=== PATIENT | female | born 1945 | race Hispanic/Latino ===

== ENCOUNTER 2018-04-02 09:41 | Emergency (ER) | payer OTHER | END 2018-04-02 10:48 | disposition home or self-care (01) | LOC: EDH 09:41 | DX: S93.492A Sprain of other ligament of left ankle, initial encounter (principal); I10 Essential (primary) hypertension; E07.9 Disorder of thyroid, unspecified; X50.9XXA Other and unspecified overexertion or strenuous movements or postures, initial encounter; Y93.89 Activity, other specified; Y92.89 Other specified places as the place of occurrence of the external cause; Y99.8 Other external cause status | CPT/HCPCS: 73610 ==

== ENCOUNTER → 2018-10-17 | Outpatient (CLI) | payer OTHER ==
[~2018-10-17] MED LIST: IOHEXOL-350 50ML VIAL IV ONE
== END | disposition home or self-care (01) ==
LOC: RAH 12:48
PROVIDERS: ATTEND Nurse Practitioner Family
DX: J43.9 Emphysema, unspecified (principal); K80.20 Calculus of gallbladder without cholecystitis without obstruction
CPT/HCPCS: 71270; Q9967

== ENCOUNTER → 2020-12-19 | Outpatient (CLI) | payer MEDICARE | END | disposition home or self-care (01) | LOC: RAH 13:21 | PROVIDERS: ATTEND Orthopaedic Surgery | DX: S83.241A Other tear of medial meniscus, current injury, right knee, initial encounter (principal); S83.281A Other tear of lateral meniscus, current injury, right knee, initial encounter; S80.01XA Contusion of right knee, initial encounter; S83.194A Other dislocation of right knee, initial encounter; M17.11 Unilateral primary osteoarthritis, right knee; M25.461 Effusion, right knee; M23.91 Unspecified internal derangement of right knee; X58.XXXA Exposure to other specified factors, initial encounter; Y93.89 Activity, other specified; Y92.89 Other specified places as the place of occurrence of the external cause; Y99.8 Other external cause status | CPT/HCPCS: 73721 ==

== ENCOUNTER → 2021-05-08 | Outpatient (CLI) | payer MEDICARE | END | disposition home or self-care (01) | LOC: RAH 09:51 | PROVIDERS: ATTEND Internal Medicine | DX: Z01.818 Encounter for other preprocedural examination (principal); J44.9 Chronic obstructive pulmonary disease, unspecified; I10 Essential (primary) hypertension; M47.815 Spondylosis without myelopathy or radiculopathy, thoracolumbar region | CPT/HCPCS: 71046 ==

== ENCOUNTER 2021-05-29 06:58 | Day surgery (SDC) | payer MEDICARE ==
[2021-05-29] VITALS (15 sets, daily range): BP systolic 115–152; BP diastolic 53–83
[~2021-05-29] VITALS: Ht 157.5 cm; Wt 48.5 kg
[2021-05-29] MEDS: CEFAZOLIN SODIUM 1 GM VIAL IVP SCH ×2 (06:00→09:15)
[~2021-05-29 06:58] MED LIST changes: +AMLO-257 PO; +AZELASTINE NASAL; +CETI10CA5 PO; +CITRACAL PO; +HYDR12.54 PO; -IOHEXOL-350 50ML VIAL IV ONE; +LEVO88TA4 PO; +MAGN500C15 PO; +MONT10TA21 PO; +MULT-1290 PO; +VITA80008 PO; +VITAMIN B12 PO; +VITAMIN D3 PO; +ZINC220T4 PO
[2021-05-29] MEDS ORDERED: ONDANSETRON 4MG INJ ONE (07:38)
[2021-05-29] MEDS ORDERED: LIDOCAINE PF 100MG/5ML (2%) SYRINGE 5ML ONE (07:38)
[2021-05-29] MEDS ORDERED: PROPOFOL 10 MG/ML 20ML VIAL IV ONE (07:38)
[2021-05-29] MEDS ORDERED: ROCURONIUM 10MG/1ML SYR 10 MG/ML ML ONE (07:39)
[2021-05-29] MEDS ORDERED: MIDAZOLAM HCL 1 MG/ML 2ML VIAL ONE (07:39)
[2021-05-29] MEDS ORDERED: FENTANYL CITRATE PF 50 MCG/1 ML 2ML VIAL ONE (07:39)
[2021-05-29] MEDS ORDERED: 0.9%NACL 1000ML 1,000 ML IV ONE (07:44)
[2021-05-29] MEDS ORDERED: EPHEDRINE SULFATE 50 MG/ML AMPULE ONE (09:30)
[2021-05-29] MEDS ORDERED: CEPH250 PO (10:02)
[2021-05-29] MEDS ORDERED: ACET1TAB25 PO (10:02)
[2021-05-29] MEDS ORDERED: MEPERIDINE-PF 25 MG/ML SYG ONE (10:33)
== END 2021-05-29 11:30 | disposition home or self-care (01) ==
LOC: DAH 06:58
PROVIDERS: ATTEND Orthopaedic Surgery
DX: M23.321 Other meniscus derangements, posterior horn of medial meniscus, right knee (principal); M23.351 Other meniscus derangements, posterior horn of lateral meniscus, right knee; Z20.822 Contact with and (suspected) exposure to COVID-19; M25.461 Effusion, right knee; G89.29 Other chronic pain; I10 Essential (primary) hypertension; M81.0 Age-related osteoporosis without current pathological fracture; Z90.49 Acquired absence of other specified parts of digestive tract; Z80.1 Family history of malignant neoplasm of trachea, bronchus and lung; Z98.890 Other specified postprocedural states; Z79.899 Other long term (current) drug therapy
CPT/HCPCS: 29880; 82948; 87635; A4215; A4221; A4222; A4223; A4649; A4663; A4930 ×3; A6223; C9803; J0690; J2001; J2175; J2250; J2405; J2704; J3010; J3490; J7030; J7120